=== PATIENT | female | born 1985 | race Caucasian/White ===

== ENCOUNTER 2022-10-12 02:01 | Emergency (ER) | payer BC ==
[2022-10-12 02:17] VITALS: O2SAT 99
--- NOTE | 2022-10-12 02:33 | ERPHSYRPT ---
- History of Present Illness Time Seen by Provider: 10/12/22 02:20 Patient Subjective Stated Complaint: pt states she fell off her porch tonight and hurt her rt hand. Triage Nursing Assessment: pt alerta nd oriented, answers questions approp. pt ambulates onto room with steady gait noted. respirations nonlabored. skin warm and dry. approx 1cm lac noted to rt hand, no bleeding noted. swelling to rt outer aspect of hand dn to 5th digit. cap refill and radial pulse wnl. Physician History: This a 37-year-old right-handed female who was on her porch yesterday evening when she slipped and fell and sustained a 1 cm laceration to the dorsal aspect of her right hand. She felt that she could Steri-Strip tripped the area. Patient cleaned the site thoroughly with soap and water then dried it and attempted to use Steri-Strips. However she was having some tenderness to the area and did not feel the Steri-Strips were quite holding strong enough. So she came to the emergency department for evaluation. The patient's tetanus status is up-to-date. Occurred: yesterday (In the evening of 10/11/2022) Method of Injury: fell Quality: aching Severity of Pain-Max: mild (Moderate) Severity of Pain-Current: mild (To moderate) Extremities Pain Location: hand: right (Dorsal aspect) Modifying Factors: Improves With: movement Associated Symptoms: none Allergies/Adverse Reactions: Penicillins Allergy (Mild, Verified 10/12/22 02:17) erythromycin base [Erythromycin Base] Adverse Reaction (Mild, Verified 10/12/22 02:17) Hives Hx Tetanus, Diphtheria Vaccination/Date Given: Yes (2016) Hx Influenza Vaccination/Date Given: No Hx Pneumococcal Vaccination/Date Given: No Immunizations Up to Date: Yes Travel Risk - International Travel Have you traveled outside of the country in past 3 weeks: No - Coronavirus Screening Are you exhibiting any of the following symptoms?: No Close contact with a COVID-19 positive Pt in past 14-21 Days: No - Vaccine Status Have you recieved a Covid-19 vaccination: Yes Senior [employer]: [email or web address] - Vaccination Dates Date of 2cond Vaccination (if applicable): september 09 - Review of Systems Constitutional: No Symptoms Eyes: No Symptoms Ears, Nose, & Throat: No Symptoms Respiratory: No Symptoms Cardiac: No Symptoms Abdominal/Gastrointestinal: No Symptoms Genitourinary Symptoms: No Symptoms Musculoskeletal: Fall, Injury (Right hand dorsal aspect) Skin: Other (1 cm laceration right hand dorsal aspect) Neurological: No Symptoms Psychological: No Symptoms Endocrine: No Symptoms Hematologic/Lymphatic: No Symptoms Immunological/Allergic: No Symptoms All Other Systems: Reviewed and Negative - Past Medical History Pertinent Past Medical History: Yes Neurological History: Migraines ENT History: No Pertinent History Cardiac History: No Pertinent History Respiratory History: No Pertinent History Endocrine Medical History: No Pertinent History Musculoskeletal History: No Pertinent History GI Medical History: No Pertinent History History: No Pertinent History Psycho-Social History: Depression Female Reproductive Disorders: No Pertinent History - Past Surgical History Past Surgical History: Yes Other Surgical History: D & C, LIVER BIOPSY, rhinoplasty - Social History Smoking Status: Current some day smoker How long have you smoked: 20-intermi Exposure to second hand smoke: Yes Drug Use: none Patient Lives Alone: No - Female History Hx Last Menstrual Period: mirena Hx Now: No - Nursing Vital Signs Nursing Vital Signs: Initial Vital Signs Temperature 98.7 F 10/12/22 02:05 Pulse Rate 103 H 10/12/22 02:05 Respiratory Rate 18 10/12/22 02:05 Blood Pressure 141/88 10/12/22 02:05 O2 Sat by Pulse Oximetry 99 10/12/22 02:05 Pain Scale Pain Intensity 8 - Physical Exam General Appearance: no apparent distress, alert, anxiety Eyes, Ears, Nose, Throat Exam: normal ENT inspection, moist mucous membranes Neck Exam: normal inspection, non-tender, supple, full range of motion Cardiovascular/Respiratory Exam: chest non-tender, no respiratory distress Abdominal Exam: non-tender Back Exam: normal inspection, normal range of motion, No CVA tenderness, No vertebral tenderness Shoulder Exam: normal inspection, non-tender, no evidence of injury, normal ROM Elbow/Forearm Exam: normal inspection, non-tender, no evidence of injury, normal ROM Wrist Exam: normal inspection, non-tender, no evidence of injury, normal ROM Hand Exam: normal ROM (Laceration was evaluated in a bloodless field to the base without evidence of a foreign body), laceration (Centimeter dorsal aspect right hand), soft tissue tenderness (The area of the laceration.) Neuro/Tendon Exam: normal sensation, normal motor functions, normal tendon functions, responds to pain, no evidence tendon injury Mental Status Exam: alert, oriented x 3, cooperative Skin Exam: laceration (1 cm laceration dorsal aspect right hand. See above extremity examination) SpO2 Interpretation: normal SpO2: 99 O2 Delivery: Room Air Procedures - Laceration/Wound Repair Right Dorsal Hand Time of Procedure: 02:50 Wound Location: Right, hand (Dorsal aspect) Wound Length (cm): 1 Wound's Depth, Shape: superficial, linear, into subcut Wound Explored: clean (No foreign body appreciated. Examination was performed to the base in a bloodless field.) Irrigated: Yes Hibiclens Prep: Yes Anesthesia: 1% Lidocaine Volume Anesthetic (ccs): 2 Wound Repaired With: sutures Suture Size/Type: 4-0, nylon Number of Sutures: 2 - Course Nursing assessment & vital signs reviewed: Yes Ordered Tests: Active Orders 24 hr Category Date Time Status HAND (MINIMUM 3 VIEWS) Stat Exams 10/12/22 02:06 Taken - Progress Progress: improved Progress Note: 10/12/22 02:34 X-ray right hand was interpreted by me. I do not see any foreign body. There are no acute fracture or dislocations present. 10/12/22 03:05 Patient's medical issue is 1 of low complexity. The level of the complexity and the work-up performed based on review of the patient's past medical history, medication list, drug allergy list, history of present illness and examination findings. The work-up included x-ray in her right hand. There were no foreign bodies, there is no fractures or dislocations. I performed a laceration repair. Patient tolerated this procedure well. I provided the patient with Keflex 500 mg orally in the hospital emergency department. She will continue continue to take Keflex 500 mg 3 times a day for the next 5 days. She is to follow the dressing instructions and suture removal instructions. 10/12/22 03:09 Patient states that her "allergy" to penicillin is nausea. Patient has had Keflex in the past without any problems Counseled pt/family regarding: diagnosis, need for follow-up, rad results Medical Desision Making - Independent Historian Additional History obtained from: Relative/friend - Discussion of managment Agreed on:: Treatment plan, need for follow-up - Diagnostic Testing Radiological Interpretation: Interpreted by me - Risk of complications Minimal Risk: Minimal risk of morbidity The pt has a mod risk of morbidity or mortality based on: Need for prescription drug management - Departure Departure Disposition: Home Clinical Impression: Laceration of hand Condition: Stable Critical Care Time: No Referrals: DARRELL MCFARLANE [Primary Care Provider] - Follow up/PCP as directed Additional Instructions: Keep the current dressing in place for 24 hours. After 24 hours, remove the dressing and wash the site daily. After each washing, blot dry use a hairdryer. After the area is dry may apply thin layer of antibiotic ointment and reapply a bandage. Suture removal in 7 to 10 days. Take your antibiotics as prescribed. Prescriptions: Cephalexin Mh 500 mg [Keflex 500 mg] 500 mg PO TID #15 cap
[2022-10-12] MEDS ORDERED: KEFLEX 500 MG PO ONE (02:59)
[2022-10-12] MEDS ORDERED: KEFLEX 500 MG ONE (03:03)
[2022-10-12 03:24] VITALS: BP 114/79; PULSE 94
--- NOTE | 2022-10-12 09:29 | XRAY ---
Indication: Pain following fall. Laceration. Comparison: None 3 view right hand obtained. No bony, articular, or soft tissue abnormalities.
== END 2022-10-12 03:23 | disposition home or self-care (01) ==
LOC: ED 02:01
DX: S61.411A Laceration without foreign body of right hand, initial encounter (principal); W17.89XA Other fall from one level to another, initial encounter; Y92.007 Garden or yard of unspecified non-institutional (private) residence as the place of occurrence of the external cause; Z72.0 Tobacco use
CPT/HCPCS: 12001; 73130; 99282; A9270-GY

== ENCOUNTER 2024-08-02 06:27 | Day surgery (SDC) | payer BC ==
[2024-08-02 07:01] LABS: HCG URINE TEST NEGATIVE (NEGATIVE)
[2024-08-02] MEDS ORDERED: Lactated Ringers 1,000 ML IV ONE (07:18)
[2024-08-02] MEDS: Lactated Ringers 1,000 ML IV SCH (07:21)
[2024-08-02] MEDS ORDERED: Versed 2 MG/2 ML Injection ONE (08:13)
[2024-08-02] MEDS ORDERED: propofoL IV ONE (08:13)
[2024-08-02] MEDS ORDERED: SUBLIMAZE 100 MCG/2 ML ONE (08:13)
[2024-08-02 08:47] VITALS: RESP 16; O2SAT 98
[2024-08-02 08:57] VITALS: BP 109/73; PULSE 76; TEMP 98.4
--- NOTE | 2024-08-03 11:29 | OP ---
SURGERY DATE/TIME: 08/02/2024 [id number] PREOPERATIVE DIAGNOSIS: Gastroesophageal reflux. POSTOPERATIVE DIAGNOSIS: Mild gastritis. PROCEDURE: Esophagogastroduodenoscopy with cold forceps biopsy of gastric antrum. SURGEON: Chapo Soliman MD INDICATIONS: The patient is a 39-year-old white female reporting problems with gastroesophageal reflux and problems with heartburn which has been present despite multiple [id number] medications and omeprazole. The patient is felt to need to have endoscopic evaluation. She was appraised of the risks of the procedure including risk of perforation, phlebitis, untoward reaction to medication, bleeding, and missed lesions. The patient verbalized her understanding and desired to have procedure performed. DESCRIPTION OF PROCEDURE AND FINDINGS: The patient was given medication by the anesthesia department. She had continuous pulse oximetry, ECG monitoring, and intermittent blood pressure monitoring during the examination. She was placed in left lateral decubitus position. A bite block was placed and a flexible Olympus gastroscope was used to intubate the oropharynx. The view of the larynx was achieved and was normal. The esophagus appeared to be normal throughout its length. The stomach was entered where normal gastric rugal folds were seen. These distended nicely with insufflation of air. The scope was passed along the greater curvature of the stomach to the pylorus which was intubated and duodenum was inspected and found to be normal. Scope was withdrawn toward the stomach again. A retroflexed view was obtained of the lesser curvature, fundus, and cardia regions of the stomach and these appeared to be essentially normal. The scope was then redirected toward the gastric antrum where biopsies were obtained to rule out the presence of Helicobacter pylori organisms. The scope was then removed from the patient who tolerated the procedure well and sent back to outpatient recovery in good condition.
== END 2024-08-02 09:05 | disposition home or self-care (01) ==
LOC: SDC 06:27
PROVIDERS: ATTEND Family Medicine
DX: K29.70 Gastritis, unspecified, without bleeding (principal); K21.9 Gastro-esophageal reflux disease without esophagitis
CPT/HCPCS: 81025; J2250; J2704; J3010